=== PATIENT | born 1965 ===

== ENCOUNTER 2020-04-10 11:27 | Outpatient (REF) | payer MEDICAID, SELFPAY | END 2020-04-10 11:28 | disposition home or self-care (01) | LOC: HO.SCI 11:27 | PROVIDERS: Visit Provider Nurse Practitioner Family | DX: Z13.89 Encounter for screening for other disorder (principal) ==

== ENCOUNTER 2023-07-28 10:24 | Outpatient (REF) | payer MEDICAID, SELFPAY ==
[2023-07-28 11:37] LABS: Estimated Average Glucose 105 mg/dL; Hemoglobin A1C 127.2203 umol/L; Hemoglobin A1c % 5.3 % (<6.0)
[2023-07-28 11:49] LABS: Alanine Aminotransferase 49 U/L (0-31); Albumin Level 4.5 g/dL (3.5-5.0); Alkaline Phosphatase 149 U/L (39-117); Anion Gap 13 (12-20); Aspartate Amino Transferase 37 U/L (5-31); Bilirubin Total 0.3 mg/dL (0.0-1.0); Blood Urea Nitrogen 13 mg/dL (9-16); Calcium 10.6 mg/dL (8.4-10.2); Carbon Dioxide 25 mmol/L (22-29); Chloride 106 mmol/L (96-108); Cholesterol 226 mg/dL (<200); Estimated Glomerular Filt Rate > 60; Glucose Random 103 mg/dL (60-115); HDL Cholesterol 73 mg/dL (>40); LDL Cholesterol Calculated 125 mg/dL (<100); Potassium 3.9 mmol/L (3.3-5.1); Sodium 140 mmol/L (135-145); Total Protein 8.3 g/dL (6.5-8.0); Triglycerides 142 mg/dL (<150)
[2023-07-28 12:31] LABS: Creatinine Urine 28.74 mg/dL; Microalbumin Urine < 5.0 mg/L
== END 2023-07-28 10:25 | disposition home or self-care (01) ==
LOC: HO.HHCL 10:24
PROVIDERS: Visit Provider Nurse Practitioner
DX: I10 Essential (primary) hypertension (principal); E66.3 Overweight
CPT/HCPCS: 36415; 80053; 80061; 82043; 82570; 83036